=== PATIENT | male | born 1990 | race Caucasian/White ===

== ENCOUNTER 2024-12-05 17:36 | Emergency (ER) | payer OTHER, SELFPAY ==
--- NOTE | ~2024-12-05 | XR_ITS ---
EXAM: XR ankle RT min 3V DATE: 12/05/2024 17:55 HISTORY: injury . COMPARISON: None available. FINDINGS: Normal mineralization. No fracture or dislocation. No lytic or blastic lesion. Joint space s are maintained. Achilles enthesopathy. No erosion or periosteal change. Soft tissue swelling over t he lateral malleolus. IMPRESSION: No acute osseous finding in the right ankle. Reviewed, dictated and finalized at location K.
[2024-12-05 17:51] VITALS: BP 99/60; PULSE 71; RESP 20; TEMP 36.4; O2SAT 98
--- NOTE | 2024-12-05 18:22 | ED_ITS ---
HPI - Extremity Injury (Lower) General Chief Complaint: Extremity Injury, Lower Stated Complaint: ankle injury Time Seen by Provider: 12/05/24 18:08 History of Present Illness HPI Narrative: Patient accidentally got his ankle stuck in a ditch, tried to get out and twisted his left ankle. EMS gave him a dose of fentanyl and Zofran EN route. Review of Systems Review of Systems: All systems reviewed & are unremarkable except as noted in HPI and below Exam Narrative: EXAMINATION OF ORGAN SYSTEMS/BODY AREAS: Constitutional: Vital signs per nursing GENERAL:[No acute distress, non-toxic appearing.] HEAD: Normal with no signs of head trauma. EYES: EOMI, conjunctiva normal ENT: Hearing grossly intact LUNGS: Nonlabored breathing. HEART: [Regular rate and rhythm], normal DP pulse ABD: [Soft], [nontender to palpation] EXT: Normal range of motion; some swelling and tenderness to the right lateral malleolus SKIN: A small abrasion to the right lower leg NEURO: [Alert and oriented x 3. No gross focal sensory or strength deficits.] PSYCH: Normal affect Course Vital Signs Vital signs: Vital Signs Temperature 97.6 F 12/05/24 17:51 Pulse Rate 71 12/05/24 17:51 Respiratory Rate 20 12/05/24 17:51 Blood Pressure 99/60 L 12/05/24 17:51 Pulse Oximetry 98 12/05/24 17:51 Temperature 97.6 F 12/05/24 17:51 Pulse Rate 71 12/05/24 17:51 Respiratory Rate 20 12/05/24 17:51 Blood Pressure 99/60 L 12/05/24 17:51 Pulse Oximetry 98 12/05/24 17:51 MDM - Extremity Injury (Lower) MDM Narrative Medical decision making narrative: MEDICAL DECISION MAKING AND COURSE IN THE ED WITH INTERPRETATION/REVIEW OF DIAGNOSTIC STUDIES: Electronic medical record was reviewed. This patient was seen by myself. Patient presented to the ED with complaint of [right ankle pain after twisting injury]. Vitals [were within acceptable limits]. Physical exam revealed tenderness at right lateral malleolus. Based on the patient's history and physical exam, I am concerned for fracture vs sprain. Ankle x-ray on my independent interpretation without any obvious fracture or dislocation. ESTUARDO wrap applied to injured extremity. Patient given strict return precautions if pain is worse or there is poor blood flow to the extremity, and advised to rest the limb and to followup with orthopedics as needed. Discharge Plan Discharge Clinical Impression: Ankle sprain and strain Patient Disposition: Home Condition: Stable Instructions: Ankle Sprain (ED) Additional Instructions: Keep the ankle propped up, Estuardo wrap on, take ibuprofen and Tylenol as needed for pain and use ice, and follow-up with your primary care doctor, you can always return to the ER for any further issues. Patient Language: Albanian Prescriptions: New acetaminophen [Tylenol Extra Strength] 500 mg tablet 1,000 mg PO Q6H PRN (Reason: pain) Qty: 50 0RF ibuprofen 600 mg tablet 600 mg PO TID PRN (Reason: fever or pain) Qty: 30 0RF Follow-up/Referrals: PHYSICIAN NOT ON STAFF,NONSTAFF [Primary Care Provider] - Stand Alone Forms: Work/School Release IP
--- OUTSIDE RECORDS SUMMARY | 2024-12-05 18:29 | XMS_ITS | Clinical Summary ---
Author Organization [facility] Address [facility] [place] [address] Care Team Providers Care Contracting Support Specialist Name Role Phone None, Provider MD Primary Care Provider Unavaila ble Allergies No known active allergies Medications No known medications Active Problems No known active problems Immunizations Immunization Administration Dates Next Due Tdap (Boostrix) 03/03/2023 Family History Relation Status Comments Father Alive Mother Alive Social History Tobacco Use Types Packs/Day Years Used Date Smoking Tobacco: Every Day Cigarettes Smokeless Tobacco: Never Tobacco Cessation:Ready to Q uit: Not Asked; Counseling Given: Not Answered Alcohol Use Standard Drinks/Week Comments Yes 0 (1 standard drink = 0.6 oz pur e alcohol) occasional Sex and Gender Information Value Date Recorded Sex Assigned at Not on file Legal Sex Male 12:17 PM CDT Gender Identity Not on file Sexual Orientation Not on file Last Filed Vital Signs Vital Sign Reading Time Taken Comments Blood Pressure 103/90 12/06/2023 6:13 PM CDT Pulse 73 12/06/2023 6:13 PM CDT Temperature 36.7 C (98.1 F) 12/06/2023 6:13 PM CDT Respiratory Rate 16 12/06/2023 6:13 PM CDT Oxygen Saturation 100% 12/06/2023 6:13 PM CDT Inhaled Oxygen Concentration - - Weight 64.9 kg (143 lb) 12/06/2023 6:13 PM CDT Height 168.9 cm (5' 6.5) 12/06/2023 6:13 PM CDT Body Mass Index 22.74 12/06/2023 6:13 PM CDT Plan of Treatment Health Maintenance Due Date Last Done Comments Annual Physical 10/29/1995 Hepatitis C 2010 Hepatitis B Vaccines (1 of 3 - 19+ 3-dose series) 10/29/2011 Pneumococcal Vaccine: Pediat rics (0 to 5 Years) and At-Risk Patients (6 to 49 Years) (1 of 2 - PCV) 10/29/2011 COVID-19 Vaccine (1 - 2023-2 5 season) 2024 DTaP, Tdap and Td Vaccines ( 2 - Td or Tdap) 03/03/2033 03/03/2023 HPV Vaccines Aged Out No longer eligi ble based on patient's age to complete this topic Meningococcal B Vaccine Aged Out No l onger eligible based on patient's age to complete this topic Meningococcal Vaccine Aged Out No ruben kike eligible based on patient's age to complete this topic RSV Immunizations Under 20 Months Aged Out No longer eligible based on patient's age to complete this topic Insurance Care Teams Contracting Support Specialist Relationship Specialty Start Date End Date None, Provider, MD PCP - General UNKNOWN PHYSICIAN SPECIALTY 02/08/23
--- OUTSIDE RECORDS SUMMARY | 2024-12-05 18:29 | XMS_ITS | Patient Health Record ---
Author Organization [facility] Address [address] [place] [address] Care Team Providers Care Engineering Department Chair Name Role Phone TORY Felix Primary Care Provider Reason For Referral No Information Medications Medication SIG (Take, Route, Frequency, Duration) Notes Start Date End Date Status Invega 6 MG 1 tab(s) orally once a day (in the morning); Duration: 30 day(s) Ac tive Viagra 100 MG 1 orally once a day; Duration: 30 days Active Immunizations Vaccine Route Administration Date Status Comme nts DTaP (Infanrix-up to 7 years - Free) Unknown 01/23/1993 Administered DTaP (Infanrix-up to 7 years - Free) Unknown 04/29/1993 Administered DTaP (Infanrix-up to 7 years - Free) Unknown 06/20/1993 Administered DTaP (Infanrix-up to 7 years - Free) Unknown 01/31/1994 Administered DTaP (Infanrix-up to 7 years - Free) Unknown 12/27/1996 Administered Hepatitis B - ped/adol. (Engerix-B - Free) Unknown 1992 Administered Hepatitis B - ped/adol. (Engerix-B - Free) Unknown 1992 Administered Hepatitis B - ped/adol. (Engerix-B - Free) Unknown 06/20/1993 Administered MMR Vaccine (Measles, Mumps, and Rubella - Free) Unknown 01/31/1994 Administered MMR Vaccine (Measles, Mumps, and Rubella - Free) Unknown 12/27/1996 Administered Polio (IPOL - Free) Unknown 01/23/1993 Administered Polio (IPOL - Free) Unknown 04/29/1993 Administered Polio (IPOL - Free) Unknown 01/31/1994 Administered Polio (IPOL - Free) Unknown 12/27/1996 Administered PPD (Tubersol - NOT FREE) ID Intradermal 09/27/2009 Admini stered Varicella (Varivax - FREE) Unknown 06/20/1996 Administe red Problems Problem Type SNOMED Code ICD Code Onset Dates Problem Status W/U Status Risk Notes Problem Major depression, single episode (67528846) Major depressive disorder, single episode, unspecified (F32.9) Active confirmed Problem Chronic rhinitis (10347358) Chronic rhinitis (J31.0) Active confirmed Problem Chronic sinusitis (71111853) Chronic sinusitis, unspecified (J32.9) Active confirmed Problem Acne (65811582) Acne, unspecified (L70.9) Active confirmed Problem Erectile dysfunction caused by drug (disorder) (027486441) Drug-induced erectile dysfunction (N52.2) Active confirmed Problem Impacted cerumen (42574110) Impacted cerumen, unspecified ear (H61.20) Active confirmed Problem Bipolar 1 disorder (648149469) Bipolar 1 disorder (F31.9) Active confirmed Plan Of Treatment Pending Test Test Name Order Date Testosterone 03/10/2018 LIPID PROFILE 03/10/2018 LIPID PROFILE 07/20/2017 TSH 03/10/2018 CMP 03/10/2018 CMP 07/20/2017 CMP 01/12/2020 CMP 09/27/2009 CBC 01/12/2020 CBC 03/10/2018 CBC 09/27/2009 LITHIUM LEVEL 07/20/2017 LITHIUM LEVEL 01/12/2020 HEPATITIS PROFILE 03/11/2018 Urinalysis 09/27/2009 blood type 09/27/2009 Hepatitis A and B Profile QUEST 09/28/19 10 CBC 07/20/2017 CMP BDF 06/04/2012 CBC BDF 06/04/2012 [place] 06/04/2012 Insurance Providers Payer Name Payer Address Payer Phone Subscriber Number Group Number Insured Name Patient Relationship to Insured Coverage Start Date Coverage End Date [facility] JENNIFFER JONES [address] [place] [id number] VANESSA HOLLOWAY Self - patient is the insured Medical (General) History Medical History History ICD Code Chicken Pox Illness Surgical History Surgery Date(Month/Year)
== END 2024-12-05 18:21 | disposition home or self-care (01) ==
PROVIDERS: Emergency Provider Emergency Medicine
DX: S93.401A Sprain of unspecified ligament of right ankle, initial encounter (principal); S96.911A Strain of unspecified muscle and tendon at ankle and foot level, right foot, initial encounter; X50.9XXA Other and unspecified overexertion or strenuous movements or postures, initial encounter
CPT/HCPCS: 73610; 99283

== ENCOUNTER 2024-12-06 18:25 | Emergency (ER) | payer OTHER, SELFPAY ==
--- NOTE | ~2024-12-06 | XR_ITS ---
EXAMINATION: XR tibia fibula RT 2V DATE: 12/06/2024 18:55 INDICATION: Pain at the proximal right lower leg post injury one day prior TECHNIQUE: AP and lateral views of the right lower leg were obtained on overlapping proximal and dist al images. COMPARISON: Right ankle radiographs dated 12/05/2024 FINDINGS: Bone alignment is normal. No fracture. Joint spaces appear normal on nonweightbearing imaging. Small Achilles calcaneal spur. No right knee or ankle joint effusion. Previously seen soft tissue swelling about the lateral malleolus has significantly improved. IMPRESSION: 1. No acute osseous abnormality. Reviewed, dictated and finalized at location A.
--- OUTSIDE RECORDS SUMMARY | 2024-12-06 18:28 | XMS_ITS | Clinical Summary ---
Author Organization [facility] Address [facility] [place] [address] Care Team Providers Care Mid Level Net Developer Name Role Phone None, Provider MD Primary [...] to complete this topic Insurance Care Teams Mid Level Net Developer Relationship Specialty Start Date End Date None, Provider, MD PCP - General UNKNOWN PHYSICIAN SPECIALTY 02/08/23
--- OUTSIDE RECORDS SUMMARY | 2024-12-06 18:28 | XMS_ITS | Patient Health Record ---
Author Organization [facility] Address [address] [place] [address] Care Team Providers Care Bowling Pin Refinisher Name Role Phone TORY Felix Primary Care [...] Risk Notes Problem Major depression, single episode (08541636) Major depressive disorder, single episode, unspecified (F32.9) Active confirmed Problem Chronic rhinitis (97596490) Chronic rhinitis (J31.0) Active confirmed Problem Chronic sinusitis (41315412) Chronic sinusitis, unspecified (J32.9) Active confirmed Problem Acne (09781367) Acne, unspecified (L70.9) Active confirmed Problem Erectile dysfunction caused by drug (disorder) (506934926) Drug-induced erectile dysfunction (N52.2) Active confirmed Problem Impacted cerumen (88546538) Impacted cerumen, unspecified ear (H61.20) Active confirmed Problem Bipolar 1 disorder (225426249) Bipolar 1 disorder (F31.9) Active confirmed Plan Of Treatment Pending Test Test Name Order Date Testosterone 03/10/2018 LIPID PROFILE 03/10/2018 LIPID PROFILE 07/20/2017 TSH 03/10/2018 CMP 03/10/2018 CMP 07/20/2017 CMP 09/27/2009 CMP 01/12/2020 CBC 01/12/2020 CBC 03/10/2018 CBC 09/27/2009 LITHIUM LEVEL 07/20/2017 LITHIUM LEVEL 01/12/2020 HEPATITIS PROFILE 03/11/2018 Urinalysis 09/27/2009 blood type 09/27/2009 Hepatitis A and B Profile QUEST 09/28/19 10 CBC 07/20/2017 CMP BDF 06/04/2012 CBC BDF 06/04/2012 [place] 06/04/2012 Insurance Providers Payer Name Payer Address Payer Phone Subscriber Number Group Number Insured Name Patient Relationship to Insured Coverage Start Date Coverage End Date [facility] JENNIFFER JONES [address] [place] [id number] VANESSA HOLLOWAY Self - patient is the insured Medical (General) History Medical History History ICD Code Chicken Pox Illness Surgical History Surgery Date(Month/Year)
[2024-12-06 18:41] VITALS: BP 123/78; PULSE 73; RESP 18; TEMP 36.4; O2SAT 100
--- NOTE | 2024-12-06 18:50 | ED_ITS ---
HPI - Extremity Injury (Lower) General Chief Complaint: Extremity Injury, Lower Stated Complaint: Right Ankle/Peñaloza Injury Time Seen by Provider: 12/06/24 18:40 Source: patient and RN notes reviewed Mode of arrival: ambulatory Limitations: no limitations History of Present Illness HPI Narrative: 34-year-old male Presents Express Care complaining of injury to right ankle. Patient reports yesterday was seen at the ER after he twisted his right ankle in a ditch while working. Patient x-ray was right ankle it showed no acute fractures or findings. Was diagnosed with an ankle sprain. Since then patient reports worsening pain to the upper part of his peñaloza and says they did not check out the rest of the peñaloza. Patient is walking on crutches because it hurts to bear weight. Patient reports swelling bruising to his right foot but no pain to his foot. Patient denies any numbness or tingling. Patient denies any other injuries. Related Data Allergies Allergy/AdvReac Type Severity Reaction Status Date / Time No Known Allergies Allergy Verified 12/06/24 18:44 Review of Systems Review of Systems: CONSTITUTIONAL: Denies fever, chills, or sweats. EYES: Denies visual changes, redness, or discharge. ENT: Denies rhinorrhea, congestion, sore throat, or otalgia. CARDIOVASCULAR: Denies chest pain, palpitations, or edema. RESPIRATORY: Denies cough or dyspnea. GASTROINTESTINAL: Denies abdominal pain, nausea, vomiting, or diarrhea. GENITOURINARY: Denies dysuria or hematuria. SKIN: Denies rash, wound, or itching. MUSCULOSKELETAL: Denies back pain, joint pain, or myalgia. Positive for right ankle injury and swelling NEUROLOGIC: Denies headache, numbness, or weakness. PSYCHIATRIC: Denies anxiety or depression. All other systems reviewed are negative, except as documented in HPI. PMFSH Comments At the time of my signature, I reviewed and agree with the nursing past medical, surgical, social, and family history. There is no relevant family history pertinent to the patient complaint. Exam Narrative: GENERAL: This is a well-nourished, well-developed adult, in no apparent distre ss. They are non ill-appearing, nontoxic appearing. HEAD: normocephalic, atraumatic. EYES: Sclera clear/white. Vision is grossly intact. Conjunctiva normal. Extraocular movement intact. EARS: External ears normal Hearing grossly intact. NOSE: External nose normal THROAT: Mucous membranes moist NECK: Neck supple CARDIOVASCULAR: Regular rate and rhythm RESPIRATORY: Respiratory rate normal, respiratory effort nonlabored, no respiratory distress NEURO: awake, alert, and oriented to person, place and time. There were no obvious focal neurologic abnormalities. EXTREMITIES: Right lower leg below the knee: No obvious deformity. There is swelling throughout the right lower leg. Small abrasion noted to the proximal anterior surface the right lower leg. Bruising throughout the right ankle. Limited range of motion due to pain to right ankle. Tenderness throughout the right lower leg. Capillary refill less than 3 seconds. Right pedal Pulse 2 +palpable. Normal sensation. Neurovascular status intact distal injury. No tenderness to palpation throughout the right foot. Patient is able to wiggle his toes. Negative Merritt's test. BACK: Nontender without deformity. Course Course Emergency Course: Portions of this record may have been created with voice recognition software Level of Care: Express Care Visit Vital Signs Vital signs: Vital Signs Temperature 97.6 F 12/06/24 18:41 Pulse Rate 73 12/06/24 18:41 Respiratory Rate 18 12/06/24 18:41 Blood Pressure 123/78 12/06/24 18:41 Pulse Oximetry 100 12/06/24 18:41 Oxygen Delivery Room Air 12/06/24 18:41 Temperature 97.6 F 12/06/24 18:41 Pulse Rate 73 12/06/24 18:41 Respiratory Rate 18 12/06/24 18:41 Blood Pressure 123/78 12/06/24 18:41 Pulse Oximetry 100 12/06/24 18:41 Oxygen Delivery Room Air 12/06/24 18:41 Reviewed MDM - Extremity Injury (Lower) [facility] Narrative Medical decision making narrative: No evidence of infection to abrasion. Abrasion appears to be healing well. X- ray yesterday right angles negative for any fractures or acute findings. Patient continued to have pain above the right ankle near the proximal tibia/fibula. Imaged of the right tibia/fibula showed no evidence of a fracture or acute findings. Improved swelling to the lateral malleolus noted on new x- ray. No pain or tenderness to the right foot. There is some swelling and bruising likely related to the ankle sprain, no foot x-ray indicated. Discussed physical exam findings. Advised supportive measures and signs/symptoms to go to the ER. Pt is appropriate for outpt treatment and f/u. Differential Diagnosis Differential diagnosis: Likely ankle sprain and strain and other (Tibia fracture, fibula fracture, soft tissue injury, abrasion) Imaging Data Radiologist's impression: ITS Impressions Tibia/Fibula X-Ray 12/06/24 18:57 IMPRESSION: 1. No acute osseous abnormality. Critical Care Time Critical Care Time Critical Care Time: No Discharge Plan Discharge Clinical Impression: Injury of ankle, right Qualifiers: Encounter type: initial encounter Qualified Code(s): S99.911A - Unspecified injury of right ankle, initial encounter Patient Disposition: Home Condition: Stable Instructions: Ankle Sprain (ED) Additional Instructions: The x-ray of your right tibia/fibula is negative for any fractures or acute findings. Rest and elevate the leg; bear weight as tolerated. Use crutches as needed Apply ice 15-20 minute intervals several times a day Keep it wrapped with GARRISON or use a soft ankle splint Motrin 600mg -800mg every 6-8 hours, alternate with Tylenol 1000mg every 6-8 hours as needed Follow up with your primary care provider in orthopedist in 2 weeks if pain is persisting. Patient Language: Tuvaluan Prescriptions: No Action acetaminophen [Tylenol Extra Strength] 500 mg tablet 1,000 mg PO Q6H PRN (Reason: pain) Qty: 50 0RF ibuprofen 600 mg tablet 600 mg PO TID PRN (Reason: fever or pain) Qty: 30 0RF Follow-up/Referrals: PHYSICIAN,COMPUTED TOMOGRAPHY SCANNER OPERATOR [Primary Care Provider] - Félix Pineda MD [Physician] - Time of Disposition: 19:07
== END 2024-12-06 19:12 | disposition home or self-care (01) ==
DX: S99.911A Unspecified injury of right ankle, initial encounter (principal); X50.1XXA Overexertion from prolonged static or awkward postures, initial encounter; Y99.0 Civilian activity done for income or pay
CPT/HCPCS: 73590; 99213; G0463

== ENCOUNTER 2024-12-29 15:32 | Emergency (ER) | payer OTHER, SELFPAY ==
--- OUTSIDE RECORDS SUMMARY | 2024-12-29 15:34 | XMS_ITS | Clinical Summary ---
Author Organization [facility] Address [facility] [place] [address] Care Team Providers Care Economic Consultant Name Role Phone None, Provider MD Primary [...] Years) (1 of 2 - PCV) 10/29/2011 HPV Vaccines (1 - 3-dose SCD M series) 10/29/2019 COVID-19 Vaccine (1 - 2023-2 5 season) 2024 DTaP, Tdap and Td Vaccines ( 2 - Td or Tdap) 03/03/2033 03/03/2023 Meningococcal B Vaccine Aged Out No l onger eligible based on patient's age to complete this topic Meningococcal Vaccine Aged Out No ruben kike eligible based on patient's age to complete this topic RSV Immunizations Under 20 Months Aged Out No longer eligible based on patient's age to complete this topic Insurance Care Teams Economic Consultant Relationship Specialty Start Date End Date None, Provider, MD PCP - General UNKNOWN PHYSICIAN SPECIALTY 02/08/23
--- OUTSIDE RECORDS SUMMARY | 2024-12-29 15:35 | XMS_ITS | Patient Health Record ---
Author Organization [facility] Address [address] [place] [address] Care Team Providers Care Director Of Coding Name Role Phone TORY Felix Primary Care Provider Reason For Referral No Information Medications Medication SIG (Take, Route, Frequency, Duration) Notes Start Date End Date Status Invega 6 MG 1 tab(s) orally once a day (in the morning); Duration: 30 day(s) Ac tive Viagra 100 MG 1 orally once a day; Duration: 30 days Active Immunizations Vaccine Route Administration Date Status Comme nts PPD (Tubersol - NOT FREE) ID Intradermal 09/27/2009 Admini stered DTaP (Infanrix-up to 7 years - Free) Unknown 01/23/1993 Administered Hepatitis B - ped/adol. (Engerix-B - Free) Unknown 06/20/1993 Administered Hepatitis B - ped/adol. (Engerix-B - Free) Unknown 1992 Administered Hepatitis B - ped/adol. (Engerix-B - Free) Unknown 1992 Administered MMR Vaccine (Measles, Mumps, and Rubella - Free) Unknown 12/27/1996 Administered MMR Vaccine (Measles, Mumps, and Rubella - Free) Unknown 01/31/1994 Administered Polio (IPOL - Free) Unknown 12/27/1996 Administered Polio (IPOL - Free) Unknown 01/31/1994 Administered Polio (IPOL - Free) Unknown 04/29/1993 Administered Polio (IPOL - Free) Unknown 01/23/1993 Administered Varicella (Varivax - FREE) Unknown 06/20/1996 Administe red DTaP (Infanrix-up to 7 years - Free) Unknown 12/27/1996 Administered DTaP (Infanrix-up to 7 years - Free) Unknown 01/31/1994 Administered DTaP (Infanrix-up to 7 years - Free) Unknown 06/20/1993 Administered DTaP (Infanrix-up to 7 years - Free) Unknown 04/29/1993 Administered Problems Problem Type SNOMED Code ICD Code Onset Dates Problem Status W/U Status Risk Notes Problem Major depression, single episode (16731965) Major depressive disorder, single episode, unspecified (F32.9) Active confirmed Problem Chronic rhinitis (46376002) Chronic rhinitis (J31.0) Active confirmed Problem Chronic sinusitis, unspecified (J32.9) Active confirmed Problem Acne (87335294) Acne, unspecified (L70.9) Active confirmed Problem Erectile dysfunction caused by drug (disorder) (981541444) Drug-induced erectile dysfunction (N52.2) Active confirmed Problem Impacted cerumen (67811767) Impacted cerumen, unspecified ear (H61.20) Active confirmed Problem Bipolar 1 disorder (297694359) Bipolar 1 disorder (F31.9) Active confirmed Plan Of Treatment Pending Test Test Name Order Date Testosterone 03/10/2018 LIPID PROFILE 03/10/2018 LIPID PROFILE 07/20/2017 TSH 03/10/2018 CMP 03/10/2018 CMP 09/27/2009 CMP 01/12/2020 CMP 07/20/2017 CBC 01/12/2020 CBC 03/10/2018 CBC 09/27/2009 LITHIUM LEVEL 07/20/2017 LITHIUM LEVEL 01/12/2020 HEPATITIS PROFILE 03/11/2018 Urinalysis 09/27/2009 blood type 09/27/2009 Hepatitis A and B Profile QUEST 09/28/19 10 CBC 07/20/2017 CMP BDF 06/04/2012 CBC BDF 06/04/2012 [place] 06/04/2012 Insurance Providers Payer Name Payer Address Payer Phone Subscriber Number Group Number Insured Name Patient Relationship to Insured Coverage Start Date Coverage End Date [facility] JENNIFFER JONES [address] [id number] VANESSA HOLLOWAY Self - patient is the insured Medical (General) History Medical History History ICD Code Chicken Pox Illness Surgical History Surgery Date(Month/Year)
[2024-12-29 15:38] VITALS: BP 120/73; PULSE 72; RESP 16; TEMP 36.6; O2SAT 98
--- NOTE | 2024-12-29 16:14 | ED.LOWEXIN ---
HPI - Extremity Injury (Lower) General Chief Complaint: Extremity Injury, Lower Stated Complaint: Right Ankle Injury Time Seen by Provider: 12/29/24 16:00 Source: patient and RN notes reviewed Mode of arrival: ambulatory Limitations: no limitations History of Present Illness HPI Narrative: 34-year-old male presents [facility] here for follow-up after right ankle injury. Patient said he was sent by a his work to be cleared for workman's comp for previous right ankle injury. Patient was diagnosed with ankle sprain and was discharged told to follow-up with his PCP or orthopedist. Patient's workplace cm to be cleared. Patient reports the pain and swelling has significantly improved. Related Data Allergies Allergy/AdvReac Type Severity Reaction Status Date / Time No Known Allergies Allergy Verified 12/06/24 18:44 Review of Systems Review of Systems: CONSTITUTIONAL: Denies fever, chills, or sweats. EYES: Denies visual changes, redness, or discharge. ENT: Denies rhinorrhea, congestion, sore throat, or otalgia. CARDIOVASCULAR: Denies chest pain, palpitations, or edema. RESPIRATORY: Denies cough or dyspnea. GASTROINTESTINAL: Denies abdominal pain, nausea, vomiting, or diarrhea. GENITOURINARY: Denies dysuria or hematuria. SKIN: Denies rash or itching. MUSCULOSKELETAL: Denies back pain, joint pain, or myalgia. NEUROLOGIC: Denies headache, numbness, or weakness. PSYCHIATRIC: Denies anxiety or depression. All other systems reviewed are negative, except as documented in HPI. PMFSH Comments At the time of my signature, I reviewed and agree with the nursing past medical, surgical, social, and family history. There is no relevant family history pertinent to the patient complaint. Exam Narrative: GENERAL: This is a well-nourished, well-developed adult, in no apparent distress. They are non ill-appearing, nontoxic appearing. HEAD: normocephalic, atraumatic. EYES: Sclera clear/white. Conjunctiva normal. Vision is grossly intact. Extraocular movements intact EARS: External ears normal, Hearing grossly intact. NOSE: External nose normal THROAT: Mucous membranes moist, NECK: Neck supple, CARDIOVASCULAR: Regular rate and rhythm RESPIRATORY: Respiratory rate normal, respiratory effort nonlabored, no respiratory distress SKIN: warm, Dry, intact with no suspicious lesions or rash, good texture and turgor. NEURO: awake, alert, and oriented to person, place and time. There were no obvious focal neurologic abnormalities. EXTREMITIES: No joint tenderness, effusion, or edema noted. Right ankle: no obvious deformity, swelling, injury, redness or bruising. Normal range of motion. Neurovascular status intact. Course Course Emergency Course: Portions of this record may have been created with voice recognition software Level of Care: Express Care Visit Vital Signs Vital signs: Vital Signs Temperature 97.9 F 12/29/24 15:38 Pulse Rate 72 12/29/24 15:38 Respiratory Rate 16 12/29/24 15:38 Blood Pressure 120/73 12/29/24 15:38 Pulse Oximetry 98 12/29/24 15:38 Oxygen Delivery Room Air 12/29/24 15:38 Temperature 97.9 F 12/29/24 15:38 Pulse Rate 72 12/29/24 15:38 Respiratory Rate 16 12/29/24 15:38 Blood Pressure 120/73 12/29/24 15:38 Pulse Oximetry 98 12/29/24 15:38 Oxygen Delivery Room Air 12/29/24 15:38 Reviewed MDM - Extremity Injury (Lower) MDM Narrative Medical decision making narrative: Appears ankle injury is a healing well. Informed patient unfortunately we do not sign off a workman's comp case is here. Told patient to talk to simpler be referred to an appropriate facility for workman's comp follow-up. Recommended [employer] for workman's comp clearance. Discussed physical exam findings. Advised supportive measures and signs/symptoms to go to the ER. Pt is appropriate for outpt treatment and f/u. Differential Diagnosis Differential diagnosis: Likely ankle sprain and strain, ankle fracture and other (Joint pain) Critical Care Time Critical Care Time Critical Care Time: No Discharge Plan Discharge Clinical Impression: Injury of right ankle Qualifiers: Encounter type: subsequent encounter Qualified Code(s): S99.911D - Unspecified injury of right ankle, subsequent encounter Patient Disposition: Home Condition: Stable Additional Instructions: Please follow-up with [employer] [facility] to be cleared for workman's comp. Phone number and address. [phone] ([id number]) [place] [address] Patient Language: Bahamian Prescriptions: No Action acetaminophen [Tylenol Extra Strength] 500 mg tablet 1,000 mg PO Q6H PRN (Reason: pain) Qty: 50 0RF ibuprofen 600 mg tablet 600 mg PO TID PRN (Reason: fever or pain) Qty: 30 0RF Follow-up/Referrals: PHYSICIAN,RACEHORSE TRAINER [Primary Care Provider] - Stand Alone Forms: Work/School Release IP Time of Disposition: 16:10
== END 2024-12-29 16:16 | disposition home or self-care (01) ==
DX: S99.911D Unspecified injury of right ankle, subsequent encounter (principal); X58.XXXD Exposure to other specified factors, subsequent encounter
CPT/HCPCS: 99212; G0463